=== PATIENT | male | born 1955 | race Caucasian/White ===

== ENCOUNTER 2017-06-21 11:51 | Outpatient (CLI) | payer OTHER ==
--- NOTE | 2017-06-21 17:01 | XRAY Report ---
THREE VIEW RIGHT KNEE: 06/21/2017 CLINICAL INDICATION: Pain. AP, lateral, sunrise views of the right knee demonstrate mild osteoarthritis, with small marginal ost eophytes. There is no evidence of fracture or dislocation. No effusion is present. IMPRESSION: MILD OSTEOARTHRITIS. :9 JOB #: [id number] EXT JOB #:[id number]
== END 2017-06-21 11:52 | disposition home or self-care (01) ==
LOC: DI 11:51
PROVIDERS: ATTEND Internal Medicine
DX: M17.11 Unilateral primary osteoarthritis, right knee (principal)

== ENCOUNTER 2017-12-12 12:24 | Outpatient (CLI) | payer OTHER ==
--- NOTE | 2017-12-12 13:43 | CT Report ---
EXAM: CT HEAD EXAM DATE: 12/12/2017 01:23 PM. CLINICAL HISTORY: LOSS OF CONSCIOUSNESS, VERTIGO, DISEQUILIBRIUM. COMPARISON: None. TECHNIQUE: Multiaxial CT images were obtained from the foramen magnum to the vertex. Reformats: Coron al. IV contrast: None. In accordance with CT protocol optimization, one or more of the following dose reduction techniques w ere utilized for this exam: automated exposure control, adjustment of mA and/or KV based on patient s ize, or use of iterative reconstructive technique. FINDINGS: Parenchyma: No intraparenchymal hemorrhage. No evidence of mass, midline shift, or CT findings of inf arction. Solano-white differentiation is distinct. Extraaxial Spaces: Normal for age. No subdural or epidural collections identified. Ventricles: Normal in size and position. Sinuses and Orbits: Imaged paranasal sinuses, orbits, and mastoids show no significant abnormality. Bones: No evidence of fracture or calvarial defect. Other: None. IMPRESSION: No acute intracranial abnormality. [facility] Referring Provider Line: [phone] SITE ID: [id number]
== END 2017-12-12 12:25 | disposition home or self-care (01) ==
LOC: DI 12:24
PROVIDERS: ATTEND Internal Medicine
DX: R55 Syncope and collapse (principal); R42 Dizziness and giddiness; E87.8 Other disorders of electrolyte and fluid balance, not elsewhere classified
CPT/HCPCS: 70450

== ENCOUNTER 2020-04-12 10:50 | Outpatient (CLI) | payer MEDICARE, OTHER | END 2020-04-12 23:59 | disposition home or self-care (01) | LOC: COV 10:50 | PROVIDERS: ATTEND Internal Medicine | DX: R06.00 Dyspnea, unspecified (principal); J02.9 Acute pharyngitis, unspecified; R68.83 Chills (without fever); Z20.828 Contact with and (suspected) exposure to other viral communicable diseases ==

== ENCOUNTER 2022-01-16 12:33 | Outpatient (CLI) | payer MEDICARE, OTHER ==
[2022-01-16] MEDS ORDERED: IOVERSOL 320 50 ML VIAL ONE (12:56)
[2022-01-16] MEDS: IOVERSOL 320 50 ML VIAL IVP ONE (14:34)
--- NOTE | 2022-01-16 14:59 | CT Report ---
PROCEDURE: Abdomen/Pelvis W INDICATIONS: Left lower quadrant abdominal pain CONTRAST: IV CONTRAST: Optiray 320 ml: 100 PO CONTRAST: Optiray 320 ml50 TECHNIQUE: After the administration of intravenous contrast, 5 mm thick sections acquired from the diaphragms to the symphysis. 5 mm thick coronal and sagittal reformats were acquired. For radiation dose reducti on, the following was used: automated exposure control, adjustment of mA and/or kV according to cody ent size. COMPARISON: None. FINDINGS: Image quality: Excellent. ABDOMEN: Lung bases: Lung bases are clear. Heart size is normal. Solid organs: Liver and spleen are normal in size and enhancement. Gallbladder is normal. Biliary system is non dilated. Pancreas enhances normally. No adrenal nodules. Kidneys demonstrate normal size and enhancement, without hydronephrosis. Peritoneum and bowel: Bowel loops demonstrate normal wall thickness and caliber. No free fluid or a ir. Nodes and vessels: No retroperitoneal or mesenteric adenopathy by size criteria. Aorta and inferior vena cava are normal in size. Miscellaneous: No ventral hernias. PELVIS: Genitourinary: Bladder wall thickness is normal. Miscellaneous: No inguinal hernias or adenopathy. Bones: No suspicious bony lesions. No vertebral body compression fractures. IMPRESSION: No acute finding to explain abdominal pain. Reviewed by: Elton Patel MD on 01/16/2022 2:58 PM PDT Approved by: Elton Patel MD on 01/16/2022 2:58 PM PDT Station ID: [id number]
== END 2022-01-16 12:34 | disposition home or self-care (01) ==
LOC: DI 12:33
PROVIDERS: ATTEND Internal Medicine
DX: R10.32 Left lower quadrant pain (principal); Z79.899 Other long term (current) drug therapy
CPT/HCPCS: 36415; 82565

== ENCOUNTER 2022-09-27 08:00 | Outpatient (CLI) | payer MEDICARE, OTHER ==
[2022-09-27 16:20] LABS: BASOPHILS # (AUTO) 0.1 10^3/uL (0.0-0.1); BASOPHILS % (AUTO) 1.2 %; EOSINOPHILS # (AUTO) 0.2 10^3/uL (0.0-0.7); EOSINOPHILS % (AUTO) 3.3 %; HCT - HEMATOCRIT 41.8 % (42.0-52.0); LYMPHOCYTES % (AUTO) 29.1 %; MEAN CORPUSCULAR HEMOGLOBIN 30.8 pg (27.0-31.0); MEAN CORPUSCULAR HGB CONC 33.5 g/dL (32.0-36.0); MEAN CORPUSCULAR VOLUME 92.1 fL (80.0-94.0); MEAN PLATELET VOLUME 9.9 fL (7.4-11.4); MONOCYTES # (AUTO) 0.6 10^3/uL (0.0-1.0); MONOCYTES % (AUTO) 8.6 %; NEUTROPHILS % (AUTO) 57.2 %; PLT - PLATELET COUNT 343 10^3/uL (130-450); RED BLOOD COUNT 4.54 10^6/uL (4.70-6.10); RED CELL DISTRIBUTION WIDTH 13.2 % (12.0-15.0); WHITE BLOOD COUNT 6.9 x10^3/uL (4.8-10.8)
[2022-09-27 16:40] LABS: ALBUMIN 4.2 g/dL (3.2-5.5); ALBUMIN/GLOBULIN RATIO 1.3 (1.0-2.2); ALKALINE PHOSPHATASE 50 IU/L (42-121); ALT ALANINE AMINOTRANSFERASE 19 IU/L (10-60); AST ASPARTATE AMINOTRANSFERASE 22 IU/L (10-42); BILIRUBIN,TOTAL 0.9 mg/dL (0.2-1.0); BUN - BLOOD UREA NITROGEN 13 mg/dL (6-20); CALCIUM 9.2 mg/dL (8.5-10.3); CARBON DIOXIDE - CO2 24 mmol/L (21-32); CHLORIDE 103 mmol/L (101-111); CHOL/HDL RATIO 2.8 (<5.0); CHOLESTEROL 240 mg/dL; CREATININE 1.1 mg/dL (0.6-1.2); GFR - MDRD 67 (>89); GLUCOSE 105 mg/dL (70-100); HDL CHOLESTEROL 85 mg/dL; LDL CHOLESTEROL,CALCULATED 144 mg/dL; LDL/HDL RATIO 1.7 (<3.6); SODIUM 136 mmol/L (135-145); TOTAL PROTEIN 7.4 g/dL (6.7-8.2); TRIGLYCERIDES 54 mg/dL; VLDL CHOLESTEROL 11 mg/dL
[2022-09-27 16:42] LABS: PSA FREE 0.74 ng/mL (0.16-2.81)
[2022-09-27 16:43] LABS: PSA TOTAL 4.13 ng/mL (0.000-2.000)
[2022-09-27 21:38] LABS: ESTIMATED AVERAGE GLUCOSE 114 mg/dL (70-100); HEMOGLOBIN A1c% 5.6 % (4.27-6.07)
== END 2022-09-27 23:59 | disposition home or self-care (01) ==
LOC: LAB.R 08:00
PROVIDERS: ATTEND Internal Medicine
DX: Z00.00 Encounter for general adult medical examination without abnormal findings (principal); U07.1 COVID-19; D64.9 Anemia, unspecified; L30.9 Dermatitis, unspecified; R97.20 Elevated prostate specific antigen [PSA]; K21.9 Gastro-esophageal reflux disease without esophagitis; E78.5 Hyperlipidemia, unspecified; R73.01 Impaired fasting glucose; R55 Syncope and collapse; M25.519 Pain in unspecified shoulder
CPT/HCPCS: 80053; 80061; 83036; 83721; 84153; 84154; 84443; 85025

== ENCOUNTER 2023-02-13 06:55 | Outpatient (CLI) | payer MEDICARE, OTHER ==
--- NOTE | 2023-02-13 10:58 | Ultrasound Report ---
PROCEDURE: Abdomen Complete INDICATIONS: ABD BLOATING TECHNIQUE: Real-time scanning was performed of the abdominal and retroperitoneal organs, with image documentatio n. COMPARISON: 01/16/2022 CT FINDINGS: Liver: 14 cm. Slightly echogenic and heterogeneous echotexture. Gallbladder: Unremarkable. Biliary ducts: Intrahepatic bile ducts are non-dilated. Extrahepatic bile duct caliber measures 4 m m. Normal is 6-7 mm or less in diameter, or 10 mm or less post-cholecystectomy. Pancreas: Visualized portions of the pancreas are sonographically normal. Spleen: Spleen is normal in size and homogeneous in echotexture. Kidneys: Kidneys are normal in size and echotexture. Right kidney measures 11 cm long; left kidney measures 11 cm long. No hydronephrosis or nephrolithiasis. No solid masses. No complex renal cystic lesions which require follow-up. Aorta: Visualized aorta is normal in caliber at less than 3 cm. Iliacs: Proximal common iliac arteries are normal in caliber at less than 2.5 cm. IVC: Intrahepatic inferior vena cava is patent. Miscellaneous: No free abdominal fluid. IMPRESSION: Slightly echogenic and heterogeneous echotexture of the liver, sometimes seen with chronic fibrofatty infiltration. No acute sonographic abnormality otherwise. Reviewed by: Kentrell Grider MD on 02/13/2023 10:57 AM PDT Approved by: Kentrell Grider MD on 02/13/2023 10:57 AM PDT Station ID: [id number]
== END 2023-02-13 06:56 | disposition home or self-care (01) ==
LOC: DI 06:55
PROVIDERS: ATTEND Internal Medicine
DX: R14.0 Abdominal distension (gaseous) (principal)